=== PATIENT | female | born 1950 | race Caucasian/White ===

== ENCOUNTER 2018-04-30 15:50 | Emergency (ER) | payer OTHER, SELFPAY ==
[2018-04-30 15:54] VITALS: BP 145/80; PULSE 86; RESP 20; TEMP 36.4; O2SAT 98; BMI 26.5
--- NOTE | 2018-04-30 15:57 | DI.RAD.S_ITS ---
PROCEDURE: XR HIP W PEL IF DONE LT 2V INDICATIONS: injury, pain TECHNIQUE: AP pelvis with lateral view(s) of the left hip(s). COMPARISON: None. FINDINGS: Bones: No fractures or dislocations. Pelvic ring appears intact. No suspicious bony lesions. Soft tissues: The visualized bowel gas pattern is normal. No suspicious soft tissue calcifications. IMPRESSION: No acute radiographic findings. If pain persists, consider advanced imaging with CT or MRI. Dictated by: Elizabeth King M.D. on 04/30/2018 at 16:40 Approved by: Elizabeth King M.D. on 04/30/2018 at 16:41
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
[2018-04-30 17:11] VITALS: BP 152/86; PULSE 91; RESP 17; O2SAT 100
--- NOTE | 2018-04-30 17:15 | PC.NURSE ---
Walker sized and teaching done.
== END 2018-04-30 17:20 | disposition home or self-care (01) ==
PROVIDERS: Emergency Provider Internal Medicine
DX: S70.02XA Contusion of left hip, initial encounter (principal); S76.219A Strain of adductor muscle, fascia and tendon of unspecified thigh, initial encounter; R10.32 Left lower quadrant pain; V19.9XXA Pedal cyclist (driver) (passenger) injured in unspecified traffic accident, initial encounter
CPT/HCPCS: 73502; 99282; 99283